=== PATIENT | male | born 1950 | race Caucasian/White ===

== ENCOUNTER 2016-04-30 08:05 | Emergency (ER) | payer BC ==
[~2016-04-30] VITALS: Ht 182.9 cm; Wt 120.5 kg
[2016-04-30 08:10] VITALS: Ht 182.9 cm; Wt 120.5 kg
[2016-04-30] MEDS ORDERED: SOD CHLORIDE 0.9% 1,000 ML IV STA (08:16)
[2016-04-30] MEDS ORDERED: ONDANSETRON 4 MG INJ IV STA ×2 (08:16→11:20)
[2016-04-30 08:45] LABS: ADD SCAN DIFF NO
[2016-04-30 08:58] LABS: ABNORMAL IP MESSAGE 1; HEMATOCRIT 48.3 % (42.0-52.0); HEMOGLOBIN 16.7 g/dl (14.0-18.0); MEAN CORPUSCULAR HEMOGLOBIN 33.3 pg (29.0-33.0); MEAN CORPUSCULAR HGB CONC 34.6 g/dl (32.0-37.0); MEAN CORPUSCULAR VOLUME 96.2 fl (82.0-101.0); MEAN PLATELET VOLUME 12.1 fl (7.4-10.4); PLATELET COUNT 202 10^3/UL (140-415); RED BLOOD COUNT 5.02 10^6/ul (4.70-6.10); RED CELL DISTRIBUTION WIDTH 12.7 % (11.5-14.5); WHITE BLOOD COUNT 30.7 10^3/ul (4.8-10.8)
[2016-04-30 09:00] LABS: ALBUMIN 4.5 g/dl (3.3-4.9); POTASSIUM 4.1 mmol/L (3.5-5.1)
[2016-04-30 09:03] LABS: ALBUMIN/GLOBULIN RATIO 1.21; CALCIUM 9.3 mg/dl (8.4-10.2); CREATININE 1.6 mg/dl (0.61-1.24); TOTAL PROTEIN 8.2 g/dl (6.1-8.1)
[2016-04-30] MEDS ORDERED: SODIUM CHLORIDE 0.9% 1L BAG IV* STA (09:11)
[2016-04-30] MEDS ORDERED: CEFEPIME 2GM/50 ML (PMX) 50 ML IVPB STA (09:11)
[2016-04-30 09:13] LABS: TROPONIN-I 0.015 ng/ml (0.00-0.12)
[2016-04-30] MEDS ORDERED: DILTIAZEM 25 MG INJ IV ONE (09:30)
[2016-04-30] MEDS ORDERED: VANCOMYCIN 1 GM (PMX) 250 ML IVPB ONE (09:30)
[2016-04-30] MEDS ORDERED: ASPI-664 PO (09:47)
[2016-04-30 09:48] LABS: ADD UMIC YES; URINE BILIRUBIN (Dip) 1+ (NEGATIVE); URINE BLOOD (Dip) NEGATIVE (NEGATIVE); URINE COLOR YELLOW (YELLOW); URINE GLUCOSE (Dip) NEGATIVE (NEGATIVE); URINE KETONES (Dip) TRACE (NEGATIVE); URINE LEUKOCYTE ESTERASE (Dip) NEGATIVE (NEGATIVE); URINE NITRITE (Dip) NEGATIVE (NEGATIVE); URINE TOTAL PROTEIN (Dip) 2+ (NEGATIVE); URINE UROBILINOGEN (Dip) 1.0 E.U./dL (0.1-1.0)
[2016-04-30] MEDS ORDERED: CLON1TAB3 PO (09:48)
[2016-04-30] MEDS ORDERED: LOSA50TA6 PO (09:58)
[2016-04-30] MEDS ORDERED: HYD25 PO (09:58)
--- NOTE | 2016-04-30 09:58 | RADRPT ---
PROCEDURE: Chest Radiograph. CLINICAL INDICATION: Shortness of breath TECHNIQUE: Single frontal chest radiograph. COMPARISON: None available FINDINGS: The heart is magnified. There is mild central vascular congestion. Left basilar atelectatic change s are present . No confluent or lobar infiltrate is seen.. The bones are intact. IMPRESSION: 1. Mild central vascular congestion. 2. Left basilar atelectasis. RPTAT: AA .Isac Sy MD, MD Date Time Electronically viewed and signed by .Isac Sy MD, MD on 04/30/2016 09:58 .B/
[2016-04-30] MEDS ORDERED: DESV100T4 PO (09:59)
[2016-04-30] MEDS ORDERED: TRAM-40 PO (10:00)
[2016-04-30] MEDS ORDERED: SILD20TA13 PO (10:01)
--- NOTE | 2016-04-30 10:25 | RADRPT ---
PROCEDURE: US DVT. CLINICAL INDICATION: Left lower extremity redness and edema. TECHNIQUE: Multiple longitudinal and transverse images of the left lower extremity veins were obta ined with toure scale and color Doppler imaging. 2D grayscale measurements with compression, color D oppler flow, and augmentation was performed. The calf veins were interrogated as well. COMPARISON: No prior studies are available for comparison. FINDINGS: The left common femoral, superficial femoral and popliteal veins are normally compressible throughou t. Color flow demonstrates normal filling of the vessel. Normal waveforms are visualized and there is normal response to augmentation. The calf veins are visualized and are equally unremarkable. There is a septated 2.5 x 0.8 x 4.3 cm cystic collection in the popliteal fossa consistent with a co mplex popliteal cyst. IMPRESSION: 1. No evidence of a deep vein thrombosis involving the left lower extremity. 2. Complex appearing 2.5 x 0.8 x 4.3 cm popliteal cyst. RPTAT: [facility] Physician Becky Date Time Electronically viewed and signed by Physician Becky on 04/30/2016 10:25 /
--- NOTE | 2016-04-30 10:27 | ERA ---
ER Documentation Chief Complaint Date/Time DATE: 04/30/16 TIME: 10:23 Chief Complaint disoriented and nausea denies vomit x 2 wks HPI Male with coronary disease, peripheral vascular disease, and atrial fibrillation who presents saying "I am sick to my stomach". He was brought in by ambulance. He denies pain. He said the symptoms started last night. He has nausea but no vomiting or diarrhea. He has no fevers. He was given Zofran by paramedics. His says that he is confused and that over the last 24 hours he has left sided leg redness which has progressed up his leg. Upon review of old medical records this is the patient's first visit to the emergency department. ROS All systems reviewed and are negative except as per history of present illness. Medications Home Meds Reported Medications Sildenafil Citrate* (Revatio*) 20 Mg Tab, 60 MG PO DAILY Y for PRN, TAB 04/30/16 Tramadol Hcl* (Ultram*) 50 Mg Tablet, 50 MG PO Q4 Y for PAIN, TAB 04/30/16 Desvenlafaxine Succinate (Pristiq) 100 Mg Tab.sr.24h, 100 MG PO DAILY, TAB.SA 04/30/16 Losartan Potassium* (Losartan Potassium*) 50 Mg Tablet, 50 MG PO DAILY, TAB 04/30/16 Hydrochlorothiazide* (Hydrochlorothiazide*) 25 Mg Tab, 25 MG PO DAILY, #30 TAB 04/30/16 Clonazepam* (Clonazepam*) 1 Mg Tablet, 1-2 MG PO QHS Y for ANXIETY, TAB 04/30/16 Aspirin* (Aspirin* EC) 81 Mg Tablet.dr, 81 MG PO DAILY, TAB 04/30/16 Allergies Allergies: Coded Allergies: No Known Allergy (Unverified , 04/30/16) PMhx/Soc History of Surgery: Yes (fem stent placement) Anesthesia Reaction: No Hx Neurological Disorder: No Hx Respiratory Disorders: No Hx Cardiac Disorders: Yes (afib (does not take blood thinner)) Hx Psychiatric Problems: Yes (depression) Hx Miscellaneous Medical Probl: Yes (PVD, chronic knee pain) Hx Alcohol Use: Yes (occassional) Hx Substance Use: Yes (marijuana ) Hx Tobacco Use: Yes Smoking Status: Former smoker FmHx Family History: No diabetes Physical Exam Vitals Vital Signs Date Time Temp Pulse Resp B/P Pulse Ox O2 Delivery O2 Flow Rate FiO2 04/30/16 08:10 99.3 95 20 136/67 100 Physical Exam Const: Mild distress secondary to nausea Head: Atraumatic Eyes: Normal Conjunctiva ENT: Normal External Ears, Nose and Mouth. Neck: Full range of motion..~ No meningismus. Resp: Clear to auscultation bilaterally Cardio: Regular rate and rhythm, no murmurs Abd: Soft, non tender, non distended. Normal bowel sounds Skin: Erythema to the left lower extremity from ankle up to the mid thigh, no abscess or necrotizing fasciitis, warm to touch Back: No midline or flank tenderness Ext: No cyanosis, or edema Neur: Awake but confused at times Result Diagram: 04/30/16 0837 04/30/16 0837 Results 24 hrs Laboratory Tests Test 04/30/16 08:37 04/30/16 09:30 Alanine Aminotransferase (ALT/SGPT) 27IU/L Albumin 4.5g/dl Albumin/Globulin Ratio 1.21 Alkaline Phosphatase 109IU/L Anion Gap 23 Aspartate Amino Transf (AST/SGOT) 28IU/L Blood Urea Nitrogen 24mg/dl Calcium Level 9.3mg/dl Carbon Dioxide Level 26mmol/L Chloride Level 95mmol/L Creatinine 1.60mg/dl Direct Bilirubin 0.00mg/dl Globulin 3.70g/dl Glucose Level 207mg/dl Hematocrit 48.3% Hemoglobin 16.7g/dl Indirect Bilirubin 1.0mg/dl Lipase 22U/L Mean Corpuscular Hemoglobin 33.3pg Mean Corpuscular Hemoglobin Concent 34.6g/dl Mean Corpuscular Volume 96.2fl Mean Platelet Volume 12.1fl Platelet Count 89275^3/UL Potassium Level 4.1mmol/L Red Blood Count 5.0210^6/ul Red Cell Distribution Width 12.7% Sodium Level 140mmol/L Total Bilirubin 1.0mg/dl Total Protein 8.2g/dl Troponin I 0.015ng/ml White Blood Count 30.710^3/ul Lactic Acid Level 3.8mmol/L Urine Bilirubin 1+ Urine Clarity CLEAR Urine Color YELLOW Urine Glucose NEGATIVE% Urine Hemoglobin NEGATIVE Urine Ictotest Pending Urine Ketones TRACE Urine Leukocyte Esterase NEGATIVE Urine Microscopic RBC Pending Urine Microscopic WBC Pending Urine Nitrite NEGATIVE Urine Specific Addison 1.025 Urine Total Protein 2+ Urine Urobilinogen 1.0 E.U./dL Urine pH 5.5 Current Medications Medications (Trade) Dose Ordered Sig/Samia Route PRN Reason Start Time Stop Time Status Last Admin Dose Admin Sodium Chloride (NS) 1,000 ml @ 1,000 mls/hr Q1H STAT IV 04/30/16 08:16 04/30/16 09:15 DC 04/30/16 08:44 Ondansetron HCl (Zofran Inj) 4 mg ONCE STAT IV 04/30/16 08:16 04/30/16 08:18 DC 04/30/16 08:44 Diltiazem HCl (Cardizem Iv) 20 mg ONCE ONCE IV 04/30/16 09:30 04/30/16 09:30 DC Sodium Chloride 2730 ml 2,730 ml BOLUS OVER 2 HOURS STAT IV* 04/30/16 09:11 04/30/16 09:13 DC 04/30/16 09:49 Cefepime HCl 50 ml @ 100 mls/hr ONCE STAT IVPB 04/30/16 09:11 04/30/16 09:40 DC 04/30/16 09:48 Vancomycin HCl (Vancocin) 250 ml @ 125 mls/hr ONCE ONCE IVPB 04/30/16 09:30 04/30/16 11:29 Procedures/MDM EKG read by me: Rate/Rhythm: Atrial fibrillation the rate of 118 Intervals: Normal Impression: Rapid atrial fibrillation with PVC Chest x-ray negative for pneumonia per radiology. Ultrasound of the left lower extremity is pending. Admit MDM: Patient's infectious symptoms have not stabilized and the patient is at risk of rapid decompensation. The patient will be admitted for careful hydration, antibiotic therapy, and infectious source control. Severe Sepsis criteria: Infectious source: Cellulitis End organ damage indicated by: Lactate greater than 2 Sepsis Management: Time of recognition of sepsis: 09:30 Within 3 hours of recognition: Blood cultures x 2 before broad-spectrum antibiotics: Yes 30 ml/kg NS bolus Completed Initial lactate 3.8 Repeat lactate pending Time of recognition of septic shock: No septic shock Septic Shock Assessment: Any lactic acid > 4.0 No Persistent hypotension (SBP < 90 or 40 mmHg drop, MAP < 65) despite 30 mL/kg IV fluid bolus No Volume Re-assessment for Septic Shock (post 30 ml/kg bolus): No septic shock at this time Persistent Hypotension Treatment: Comfort care No Central line Not Required Vasopressor started Not required I considered further perfusion assessment with CVP measurement, SCVO2, bedside ultrasound volume assessment, passive leg raise, trial of further fluid bolus. And proceeded with 30 ml/kg fluid bolus of NSS, broad spectrum antibiotics, and admission. The patient has [employer] insurance and therefore will be transferred based on insurance reasons. I spoke with Dr. Licona from [facility] who will accept the patient in transfer to a telemetry bed. Accepting Care Team Current data and ongoing care discussed. Admitting Physician: Dr. Livan vital [facility] Practice Nurse(s): None Outstanding Data: Culture results and repeat lactic acid Critical Care: Critical care time 35 minutes excluding all billable procedures Emergent fluid management while maintaining close respiratory support. Provision of immediate and broad-spectrum antibiotic therapy. Simultaneous assessment for possible sources in order to direct targeted therapy. Consideration for invasive and chemical support to prevent cardiopulmonary collapse. Departure Diagnosis: Primary Impression: Severe sepsis Additional Impressions: Cellulitis Qualified Code: L03.116 - Cellulitis of left lower extremity Sepsis Qualified Code: A41.9 - Sepsis, due to unspecified organism Altered awareness, transient Leukocytosis Qualified Code: D72.829 - Leukocytosis, unspecified type Renal failure Condition: FRANTZ Cole MD Apr 30, 2016 10:27
[2016-04-30] MEDS ORDERED: KETOROLAC 30 MG INJ IV STA (10:29)
[2016-04-30 10:47] LABS: BACTERIA,URINE FEW; ICTOTEST NEGATIVE (NEGATIVE); MUCUS,URINE FEW; URINE RBCS NONE SEEN /HPF (0)
[2016-04-30 11:07] LABS: LYMPHOCYTES # 1.2 10^3/ul (0.8-2.9); MONOCYTE # 0.3 10^3/ul (0.3-0.9); NEUTROPHIL # 27.6 10^3/ul (1.6-7.5)
[2016-04-30 12:21] VITALS: BP 113/86; PULSE 106; RESP 16; TEMP 99.7
== END 2016-04-30 12:37 | disposition short-term general hospital (02) ==
LOC: E/R 08:05
DX: A41.9 Sepsis, unspecified organism (principal); R11.0 Nausea; L03.116 Cellulitis of left lower limb; N17.9 Acute kidney failure, unspecified; R40.4 Transient alteration of awareness; D72.829 Elevated white blood cell count, unspecified; R65.20 Severe sepsis without septic shock; R40.2142 Coma scale, eyes open, spontaneous, at arrival to emergency department; R40.2252 Coma scale, best verbal response, oriented, at arrival to emergency department; R40.2362 Coma scale, best motor response, obeys commands, at arrival to emergency department; Z79.82 Long term (current) use of aspirin; Z87.891 Personal history of nicotine dependence
CPT/HCPCS: 36415; 71010; 80053; 81001; 83605; 83690; 84484; 85025; 87040; 93005; 93971; 96374; 96375; 96376; 99291; J1885; J2405; J3370; J7030; 81003